=== PATIENT | male | born 2000 | race American Indian/Alaskan Native ===

== ENCOUNTER 2020-05-01 00:36 | Emergency (ER) | payer SELFPAY ==
[2020-05-01 01:12] VITALS: BP 140/81
--- NOTE | 2020-05-01 01:14 | Emergency Department Report ---
ED Lower Extremity HPI - General Stated Complaint: POSSIBLE BROKEN TOE Time Seen by Provider: 05/01/20 01:10 Source: patient Mode of arrival: Ambulatory Limitations: No Limitations - History of Present Illness Complaint: foot injury, other (Right great toe injury ) -: Sudden (around 1900 last night ) Injury: Foot: Right, Toes: Right (Right great toe ) Type of Injury: blunt, other (couch accidentally fell onto foot while carrying down stairs) Place: home Severity: moderate Improves With: nothing Worsens With: weight bearing, movement, palpation Context: direct blow Associated Symptoms: swelling, ambulatory. denies: numbness, tingling Treatments Prior to Arrival: NSAIDS, other (Lidocaine patch) - Related Data Previous Rx's Medication Instructions Recorded Last Taken Type Ibuprofen [Motrin] 600 mg PO Q8H PRN #30 tablet 05/01/20 Unknown Rx traMADoL [Ultram] 50 mg PO Q6HR PRN #12 tablet 05/01/20 Unknown Rx ED Review of Systems ROS: Stated complaint: POSSIBLE BROKEN TOE Other details as noted in HPI Comment: All other systems reviewed and negative Musculoskeletal: joint swelling, arthralgia Skin: other (abrasion right great toe) ED Past Medical Hx - Medications Home Medications: Home Medications Medication Instructions Recorded Confirmed Last Taken Type Ibuprofen [Motrin] 600 mg PO Q8H PRN #30 tablet 05/01/20 Unknown Rx traMADoL [Ultram] 50 mg PO Q6HR PRN #12 tablet 05/01/20 Unknown Rx ED Physical Exam - General General appearance: alert, in no apparent distress - Head Head exam: Present: atraumatic, normocephalic, normal inspection - Respiratory Respiratory exam: Absent: respiratory distress - Cardiovascular Cardiovascular Exam: Present: regular rate - Expanded Lower Extremity Exam Right Foot/Toe exam: Present: tenderness (Mod tto IP joint and distal right great toe), abrasion (very small just behind the posterior nail fold), ecchymosis (Mild distal right great toe), subungual hematoma (small- proximal aspect of nail. No nail avulsion). Absent: laceration, deformity, crepidus, dislocation, erythema, amputation, puncture wound, foreign body Neuro vascular tendon exam: Present: no vascular compromise - Neurological Exam Neurological exam: Present: alert, oriented X3, CN II-XII intact, normal gait - Psychiatric Psychiatric exam: Present: normal affect, normal mood ED Course Vital Signs 05/01/20 01:08 Temperature 98.5 F Pulse Rate 81 Respiratory 16 Rate Blood Pressure 140/81 O2 Sat by Pulse 95 Oximetry ED Lower Extremity MDM - Radiology Data Radiology results: report reviewed Patient: IVELISSE DIAZ MR# : [id number] : 2000 Acct:[id number] Age/Sex: 19 / M ADM Date: 05/01/20 Loc: ED Attending Dr: Ordering Physician: NIKKO GOFF Date of Service: 05/01/20 Procedure(s): XR foot 3+V RT Accession Number(s): [id number] cc: NIKKO GOFF Fluoro Time In Minutes: XR foot 3+V RT INDICATION / CLINICAL INFORMATION: crush injury great toe. COMPARISON: None available. FINDINGS: No acute fracture. Normal alignment. Joint spaces are preserved. No destructive osseous lesion or suspicious periosteal reaction. Impression: 1.No acute fracture. Signer Name: Shon Joseph MD Signed: 05/01/2020 1:39 AM Workstation Name: [id number] Transcribed By: CS Dictated By: Shon Joseph MD Electronically Authenticated By: Shon Joseph MD Signed Date/Time: 05/01/20138 DD/ 8 TD/TT: - Medical Decision Making Xray of right great to negative for anything acute. Patient with small subungual hematoma which was drained using cautery device. No anesthesia used. Patient tolerated procedure well. Toe was wrapped and daniela taped. Discussed x-ray results, diagnosis and treatment plan with patient. Patient stable at time of discharge. Critical care attestation.: If time is entered above; I have spent that time in minutes in the direct care of this critically ill patient, excluding procedure time. ED Disposition Clinical Impression: Contusion of great toe of right foot, Subungual hematoma Disposition: DC-01 TO HOME OR SELFCARE Is pt being admited?: No Does the pt Need Aspirin: No Condition: Stable Instructions: Subungual Hematoma, Contusion, [id number] Additional Instructions: Rest ice and elevate your foot as often as possible for the next 2 to 3 days. Take the Motrin and Ultram as prescribed. Keep the toe clean daily with soap and water, dry well and you can apply a small amount of Neosporin after each cleaning; you can continue to put a dressing and do the daniela tape for another 4 to 5 days. Follow-up with the primary care doctor listed on your discharge instructions. Return to the ER if your symptoms changes or worsens in any way. Prescriptions: Ibuprofen [Motrin] 600 mg PO Q8H PRN #30 tablet PRN Reason: Pain traMADoL [Ultram] 50 mg PO Q6HR PRN #12 tablet PRN Reason: Pain Referrals: BIRGIT FELIX MD [Staff Physician] - 3-5 Days Forms: Work/School Release Form(ED) Time of Disposition: 01:53
--- NOTE | 2020-05-01 01:44 | XRay Report ---
XR foot 3+V RT INDICATION / CLINICAL INFORMATION: crush injury great toe. COMPARISON: None available. FINDINGS: No acute fracture. Normal alignment. Joint spaces are preserved. No destructive osseous lesion or s uspicious periosteal reaction. Impression: 1.No acute fracture. Signer Name: Shon Joseph MD Signed: 05/01/2020 1:39 AM Workstation Name: [id number]
[2020-05-01] MEDS ORDERED: ACETAMINOPHEN 500 MG TAB PO ONE (01:51)
[2020-05-01] MEDS ORDERED: NEOMY 3.5 MG/BACIT 400 UNITS/POLY B 5000 UNITS/GM OINT PACKET TP ONE (01:51)
== END 2020-05-01 02:00 | disposition home or self-care (01) ==
LOC: ED 00:36
DX: S90.211A Contusion of right great toe with damage to nail, initial encounter (principal); Z79.1 Long term (current) use of non-steroidal anti-inflammatories (NSAID); Z79.899 Other long term (current) drug therapy; W20.8XXA Other cause of strike by thrown, projected or falling object, initial encounter; Y93.89 Activity, other specified; Y92.89 Other specified places as the place of occurrence of the external cause; Y99.8 Other external cause status
CPT/HCPCS: 11740; 73630; 99283; A6250